=== PATIENT | female | born 1995 | race Caucasian/White ===

== ENCOUNTER 2019-05-14 23:48 | Emergency (ER) | payer OTHER ==
[~2019-05-14] VITALS: Ht 167.6 cm; Wt 61.4 kg
[2019-05-15 00:03] VITALS: Ht 167.6 cm; Wt 61.4 kg
[2019-05-15] MEDS ORDERED: KEFLEX500 MG PO (00:05)
[2019-05-15 00:42] LABS: ALBUMIN 3.7 g/dL (3.4-5.0); ALKALINE PHOSPHATASE 67 U/L (46-116); ALT (SGPT) 20 U/L (10-68); BILIRUBIN - TOTAL 0.21 mg/dL (0.2-1.3); CALC OSMOLALITY 272 mosm/kg (275-300); CALCIUM 8.5 mg/dL (8.5-10.1); CARBON DIOXIDE 28.8 mmol/L (21.0-32.0); CHLORIDE - SERUM 103 mmol/L (98-107); CREATININE - SERUM 0.7 mg/dL (0.6-1.3); GLUCOSE 100 mg/dL (74-106); POTASSIUM - SERUM 3.9 mmol/L (3.5-5.1); PROTEIN - SERUM 7.4 g/dL (6.4-8.2); SODIUM 137 mmol/L (136-145); UREA NITROGEN 9 mg/dL (7-18); eGFR NON AFRICAN AMERICAN > 90 mL/min (90-120)
[2019-05-15 00:43] LABS: BASOPHILS 0.6 % (0-2); EOSINOPHILS 5.1 % (0-7); HEMATOCRIT 36.2 % (36.0-48.0); HEMOGLOBIN 12.1 g/dL (12-16); IMMATURE GRANULOCYTES 0.4 % (0-5); LYMPHOCYTES 31.6 % (15-50); MCH 26.8 pg (26.0-34.0); MCHC 33.4 g/dL (31.0-37.0); MCV 80.3 fL (80.0-100.0); MEAN PLATELET VOLUME 10.1 fL (7.4-10.4); NEUTROPHILS 52.3 % (40-80); PLATELET COUNT 237 10x3/uL (130-400); RBC 4.51 10x6/uL (4.00-5.40); RDW 14.7 % (11.5-14.5); WBC 8.1 10x3/uL (4.8-10.8)
[2019-05-15 00:46] LABS: HCG URINE POSITIVE (NEGATIVE)
[2019-05-15 00:50] LABS: APPEARANCE CLEAR (CLEAR); BILIRUBIN NEGATIVE (NEGATIVE); COLOR STRAW (YELLOW); GLUCOSE NEGATIVE (NEGATIVE); KETONE NEGATIVE (NEGATIVE); NITRITE NEGATIVE (NEGATIVE); PROTEIN NEGATIVE (NEGATIVE); SPECIFIC GRAVITY 1.025 (1.005-1.020); UROBILINOGEN NORMAL (NORMAL)
[2019-05-15 00:51] LABS: BACTERIA NONE SEEN /hpf (NONE SEEN); EPITHELIAL CELLS NSEEN /hpf (0-5); WHITE CELLS - URINE NSEEN /hpf (0-5)
[2019-05-15 01:16] LABS: HCG - QUANTITATIVE (MATERNAL) 4888 mIU/mL
[2019-05-15 02:48] VITALS: BP 121/66
== END 2019-05-15 02:49 | disposition home or self-care (01) ==
LOC: D.ER 23:48
PROVIDERS: Family Medicine
DX: O20.0 Threatened abortion (principal); Z3A.01 Less than 8 weeks gestation of pregnancy

== ENCOUNTER 2020-06-06 19:27 | Emergency (ER) | payer OTHER ==
[~2020-06-06] VITALS: Ht 167.6 cm; Wt 54.4 kg
[~2020-06-06 19:27] MED LIST: KEFLEX500 MG PO
[2020-06-06 20:03] VITALS: Ht 167.6 cm; Wt 54.4 kg
[2020-06-06 20:13] LABS: BASOPHILS 0.3 % (0-2); EOSINOPHILS 2.5 % (0-7); HEMATOCRIT 39.7 % (36.0-48.0); IMMATURE GRANULOCYTES 0.1 % (0-5); MCH 27.8 pg (26.0-34.0); MCHC 32.7 g/dL (31.0-37.0); MCV 84.8 fL (80.0-100.0); MEAN PLATELET VOLUME 9.5 fL (7.4-10.4); MONOCYTES 7.5 % (2-11); NEUTROPHILS 58.6 % (40-80); PLATELET COUNT 231 10x3/uL (130-400); RBC 4.68 10x6/uL (4.00-5.40); RDW 14.3 % (11.5-14.5); WBC 9.1 10x3/uL (4.8-10.8)
[2020-06-06 20:22] LABS: CALC OSMOLALITY 276 mosm/kg (275-300); CARBON DIOXIDE 25.5 mmol/L (21.0-32.0); CHLORIDE - SERUM 104 mmol/L (98-107); CREATININE - SERUM 0.8 mg/dL (0.6-1.3); GLUCOSE 93 mg/dL (74-106); POTASSIUM - SERUM 4.3 mmol/L (3.5-5.1); SODIUM 138 mmol/L (136-145); UREA NITROGEN 14 mg/dL (7-18); eGFR NON AFRICAN AMERICAN > 90 mL/min (90-120)
[2020-06-06 20:29] LABS: ALKALINE PHOSPHATASE 61 U/L (30-120); ALT (SGPT) 24 U/L (10-68); BILIRUBIN - TOTAL 0.19 mg/dL (0.2-1.3); PROTEIN - SERUM 7.9 g/dL (6.4-8.2)
[2020-06-06 20:33] LABS: BILIRUBIN NEGATIVE (NEGATIVE); EPITHELIAL CELLS 0-5 /hpf (0-5); KETONE NEGATIVE (NEGATIVE); NITRITE NEGATIVE (NEGATIVE); UROBILINOGEN NORMAL mg/dL (< 2)
[2020-06-06 20:34] LABS: BACTERIA FEW HPF (NONE SEEN)
[2020-06-06 21:02] LABS: HCG - QUANTITATIVE (MATERNAL) 3779 mIU/mL
[2020-06-06] MEDS ORDERED: AUGMENTIN 875-11 TAB PO (21:26)
[2020-06-06 22:22] VITALS: BP 129/67
== END 2020-06-06 22:22 | disposition home or self-care (01) ==
LOC: D.ER 19:27
PROVIDERS: Family Medicine
DX: O26.899 Other specified pregnancy related conditions, unspecified trimester (principal); R10.30 Lower abdominal pain, unspecified; N39.0 Urinary tract infection, site not specified

== ENCOUNTER 2020-06-12 15:50 | Emergency (ER) | payer OTHER ==
[~2020-06-12] VITALS: Ht 167.6 cm; Wt 56.8 kg
[~2020-06-12 15:50] MED LIST changes: +AUGMENTIN 875-11 TAB PO
[2020-06-12 16:10] VITALS: Ht 167.6 cm; Wt 56.8 kg
[2020-06-12 17:14] LABS: BASOPHILS 0.2 % (0-2); EOSINOPHILS 2.8 % (0-7); HEMATOCRIT 39.6 % (36.0-48.0); IMMATURE GRANULOCYTES 0.2 % (0-5); LYMPHOCYTES 23.3 % (15-50); MCH 27.9 pg (26.0-34.0); MCHC 32.8 g/dL (31.0-37.0); MEAN PLATELET VOLUME 9.6 fL (7.4-10.4); MONOCYTES 7.2 % (2-11); NEUTROPHILS 66.3 % (40-80); PLATELET COUNT 204 10x3/uL (130-400); RBC 4.66 10x6/uL (4.00-5.40); RDW 14.1 % (11.5-14.5); WBC 8.4 10x3/uL (4.8-10.8)
[2020-06-12 17:21] LABS: BACTERIA NONE SEEN HPF (NONE SEEN); BILIRUBIN NEGATIVE (NEGATIVE); EPITHELIAL CELLS 0-5 /hpf (0-5); KETONE NEGATIVE (NEGATIVE); NITRITE NEGATIVE (NEGATIVE); UROBILINOGEN NORMAL mg/dL (< 2); WHITE CELLS - URINE 0-5 HPF (0-4)
[2020-06-12 17:43] LABS: CALC OSMOLALITY 277 mosm/kg (275-300); CALCIUM 9.3 mg/dL (8.5-10.1); CARBON DIOXIDE 27.2 mmol/L (21.0-32.0); CHLORIDE - SERUM 105 mmol/L (98-107); CREATININE - SERUM 0.8 mg/dL (0.6-1.3); GLUCOSE 92 mg/dL (74-106); POTASSIUM - SERUM 4.6 mmol/L (3.5-5.1); SODIUM 139 mmol/L (136-145); UREA NITROGEN 12 mg/dL (7-18); eGFR NON AFRICAN AMERICAN > 90 mL/min (90-120)
[2020-06-12 17:51] LABS: ALBUMIN 3.8 g/dL (3.4-5.0); ALKALINE PHOSPHATASE 56 U/L (30-120); ALT (SGPT) 27 U/L (10-68); BILIRUBIN - TOTAL 0.24 mg/dL (0.2-1.3); PROTEIN - SERUM 7.1 g/dL (6.4-8.2)
[2020-06-12 20:56] VITALS: BP 124/72
== END 2020-06-12 20:57 | disposition home or self-care (01) ==
LOC: D.ER 15:50
PROVIDERS: Family Medicine
DX: O26.851 Spotting complicating pregnancy, first trimester (principal); Z3A.01 Less than 8 weeks gestation of pregnancy; R10.2 Pelvic and perineal pain

== ENCOUNTER 2020-11-28 20:08 | Emergency (ER) | payer SELFPAY ==
[~2020-11-28] VITALS: Ht 167.6 cm; Wt 56.8 kg
[2020-11-28 20:17] VITALS: BP 124/78; Ht 167.6 cm; Wt 56.8 kg
[2020-11-28] MEDS ORDERED: AMOXICILLIN500 M1 PO (20:44)
[2020-11-28] MEDS ORDERED: IBUPROFEN800 MG PO (20:44)
== END 2020-11-28 21:01 | disposition home or self-care (01) ==
LOC: D.ER 20:08
DX: K04.7 Periapical abscess without sinus (principal); K08.89 Other specified disorders of teeth and supporting structures

== ENCOUNTER 2021-03-07 11:05 | Emergency (ER) | payer SELFPAY ==
[~2021-03-07] VITALS: Ht 167.6 cm; Wt 56.8 kg
[~2021-03-07 11:05] MED LIST changes: +AMOXICILLIN500 M1 PO; +IBUPROFEN800 MG PO
[2021-03-07 11:10] VITALS: BP 132/58; Ht 167.6 cm; Wt 56.8 kg
[2021-03-07 11:57] LABS: BACTERIA FEW HPF (<MOD); BILIRUBIN NEGATIVE (NEGATIVE); KETONE NEGATIVE mg/dL (< 1+); NITRITE NEGATIVE (NEGATIVE); SQUAMOUS EPITHELIAL 16 HPF (0-4); UROBILINOGEN NORMAL mg/dL (< 2); WHITE CELLS - URINE 35 HPF (0-4)
[2021-03-07 12:01] LABS: BASOPHILS 0.7 % (0-2); EOSINOPHILS 3.4 % (0-7); HEMATOCRIT 38.3 % (36.0-48.0); HEMOGLOBIN 12.5 g/dL (12-16); MCH 27.5 pg (26.0-34.0); MCHC 32.6 g/dL (31.0-37.0); MCV 84.4 fL (80.0-100.0); MEAN PLATELET VOLUME 7.9 fL (7.4-10.4); MONOCYTES 8.1 % (2-11); NEUTROPHILS 59.8 % (40-80); PLATELET COUNT 241 10x3/uL (130-400); RBC 4.54 10x6/uL (4.00-5.40); RDW 14.8 % (11.5-14.5); WBC 5.9 10x3/uL (4.8-10.8)
[2021-03-07 12:11] LABS: CALC OSMOLALITY 276 mosm/kg (275-300); CALCIUM 8.7 mg/dL (8.5-10.1); CARBON DIOXIDE 28.5 mmol/L (21.0-32.0); CHLORIDE - SERUM 105 mmol/L (98-107); CREATININE - SERUM 0.7 mg/dL (0.6-1.3); POTASSIUM - SERUM 4.5 mmol/L (3.5-5.1); SODIUM 139 mmol/L (136-145); UREA NITROGEN 10 mg/dL (7-18); eGFR NON AFRICAN AMERICAN > 90 mL/min (90-120)
[2021-03-07 12:17] LABS: HCG SERUM POSITIVE (NEGATIVE)
[2021-03-07 12:18] LABS: GLUCOSE 90 mg/dL (74-106)
[2021-03-07 12:39] LABS: ALBUMIN 3.8 g/dL (3.4-5.0); ALKALINE PHOSPHATASE 58 U/L (30-120); ALT (SGPT) 28 U/L (10-68); BILIRUBIN - TOTAL 0.52 mg/dL (0.2-1.3); HCG - QUANTITATIVE (MATERNAL) 4918 mIU/mL; PROTEIN - SERUM 7.1 g/dL (6.4-8.2)
[2021-03-07] MEDS ORDERED: MACROBID100 MG PO (14:02)
== END 2021-03-07 14:09 | disposition home or self-care (01) ==
LOC: D.ER 11:05
PROVIDERS: Family Medicine
DX: O23.41 Unspecified infection of urinary tract in pregnancy, first trimester (principal); Z3A.01 Less than 8 weeks gestation of pregnancy; N93.9 Abnormal uterine and vaginal bleeding, unspecified